=== PATIENT | male | born 1950 | race Caucasian/White ===

== ENCOUNTER 2017-04-14 11:34 | Inpatient (IN) | payer OTHER ==
[~2017-04-14] VITALS: Ht 190.5 cm; Wt 104.3 kg
[2017-04-14 14:11] LABS: BASOPHIL % 0.7 % (0-2); PLATELET COUNT 143 x10^3mcL (130-400)
[2017-04-14 14:13] LABS: RED CELL DISTRIBUTION WIDTH 16.6 % (11.5-14.5)
[2017-04-14 14:22] LABS: CALCIUM 8.6 mg/dL (8.5-10.1); CARBON DIOXIDE 30.6 mmol/L (21-32); CHLORIDE SERUM 98 mmol/L (98-107); CREATININE SERUM 0.6 mg/dL (0.7-1.3); GFR1 > 60 mL/min; GLUCOSE SERUM 101 mg/dL (74-106); POTASSIUM SERUM 3.5 mmol/L (3.5-5.1); SODIUM SERUM 134 mmol/L (136-145)
[2017-04-14 14:27] LABS: ALKALINE PHOSPHATASE 74 U/L (46-116); ALT/SGPT 43 U/L (16-63); AST/SGOT 29 U/L (15-37); BILIRUBIN TOTAL 1.6 mg/dL (0.20-1.00)
[2017-04-14 14:28] LABS: ALBUMIN 2.5 g/dL (3.4-5.0); TOTAL PROTEIN, SERUM 6.1 g/dL (6.4-8.2)
[2017-04-14 16:06] LABS: UA SPECIFIC GRAVITY <=1.005 (1.005-1.035); microscopic required? YES; urine erythrocyte 1+ (NEGATIVE)
[2017-04-14 16:31] VITALS: BP 140/70
[2017-04-14 16:32] LABS: AMPHETAMINE QUAL UR POSITIVE (NEG <=1000)
[2017-04-14 16:52] LABS: T3 TOTAL 0.93 ng/mL
[2017-04-14 17:04] LABS: MAGNESIUM 1.6 mg/dL (1.8-2.4); PHOSPHOROUS 2.7 mg/dL (2.5-4.9)
[2017-04-14 17:07] LABS: CHOLESTEROL/HDL RATIO 1.8
[2017-04-14 17:14] LABS: FREE T4 1.56 ng/dL (0.76-1.46); FREE THYROXINE INDEX 4.1 ug/dL (1.4-4.5); T4(THYROXINE) 10.6 ug/dL (4.7-13.3)
[2017-04-14 18:08] VITALS: BP 127/75
[2017-04-14 21:45] VITALS: BP 134/75
[2017-04-15 06:19] VITALS: BP 127/72
[2017-04-15 06:21] VITALS: BP 127/72
[2017-04-15 07:07] LABS: CALCIUM 8.1 mg/dL (8.5-10.1); CARBON DIOXIDE 29.2 mmol/L (21-32); CHLORIDE SERUM 101 mmol/L (98-107); CREATININE SERUM 0.5 mg/dL (0.7-1.3); GFR1 > 60 mL/min; GLUCOSE SERUM 83 mg/dL (74-106); POTASSIUM SERUM 3.5 mmol/L (3.5-5.1); SODIUM SERUM 136 mmol/L (136-145)
[2017-04-15 07:19] LABS: BASOPHIL % 0 % (0-2); PLATELET COUNT 99 x10^3mcL (130-400); RED CELL DISTRIBUTION WIDTH 16.3 % (11.5-14.5)
[2017-04-15 09:41] VITALS: BP 137/72
[2017-04-15 13:30] VITALS: BP 136/75
[2017-04-15 17:02] VITALS: BP 119/69
[2017-04-15 22:24] VITALS: BP 145/78
[2017-04-16 05:41] VITALS: BP 161/78
[2017-04-16 06:20] LABS: BASOPHIL % 0.4 % (0-2)
[2017-04-16 06:32] LABS: PLATELET COUNT 85 x10^3mcL (130-400); RED CELL DISTRIBUTION WIDTH 16.5 % (11.5-14.5)
[2017-04-16 06:45] LABS: CARBON DIOXIDE 28.2 mmol/L (21-32); CHLORIDE SERUM 105 mmol/L (98-107); CREATININE SERUM 0.4 mg/dL (0.7-1.3); GFR1 > 60 mL/min; GLUCOSE SERUM 91 mg/dL (74-106); MAGNESIUM 1.8 mg/dL (1.8-2.4); PHOSPHOROUS 2.9 mg/dL (2.5-4.9); POTASSIUM SERUM 3.4 mmol/L (3.5-5.1); SODIUM SERUM 138 mmol/L (136-145)
[2017-04-16 09:11] VITALS: BP 146/83
[2017-04-16 13:36] VITALS: BP 140/75
[2017-04-16 17:07] VITALS: BP 140/70
[2017-04-16 21:42] VITALS: BP 141/73
[2017-04-17 04:06] VITALS: BP 158/81
[2017-04-17 08:14] LABS: BASOPHIL % 0.4 % (0-2)
[2017-04-17 08:19] LABS: PLATELET COUNT 97 x10^3mcL (130-400); RED CELL DISTRIBUTION WIDTH 16.8 % (11.5-14.5)
[2017-04-17 08:26] LABS: CARBON DIOXIDE 29.6 mmol/L (21-32); CHLORIDE SERUM 104 mmol/L (98-107); CREATININE SERUM 0.5 mg/dL (0.7-1.3); GFR1 > 60 mL/min; GLUCOSE SERUM 100 mg/dL (74-106); POTASSIUM SERUM 3.8 mmol/L (3.5-5.1); SODIUM SERUM 137 mmol/L (136-145)
[2017-04-17 10:01] VITALS: BP 138/74
[2017-04-17 11:56] VITALS: BP 166/101
[2017-04-17 14:10] VITALS: BP 137/76
[2017-04-17 18:04] VITALS: BP 150/79
[2017-04-17 21:15] VITALS: BP 153/84
[2017-04-18 05:06] VITALS: BP 172/82
[2017-04-18 08:56] LABS: BASOPHIL % 0.6 % (0-2)
[2017-04-18 09:05] LABS: CALCIUM 8.2 mg/dL (8.5-10.1); CARBON DIOXIDE 28.3 mmol/L (21-32); CHLORIDE SERUM 99 mmol/L (98-107); CREATININE SERUM 0.5 mg/dL (0.7-1.3); GFR1 > 60 mL/min; GLUCOSE SERUM 79 mg/dL (74-106); MAGNESIUM 1.6 mg/dL (1.8-2.4); PHOSPHOROUS 2.7 mg/dL (2.5-4.9); POTASSIUM SERUM 3.6 mmol/L (3.5-5.1); SODIUM SERUM 131 mmol/L (136-145)
[2017-04-18 09:16] LABS: PLATELET COUNT 125 x10^3mcL (130-400); RED CELL DISTRIBUTION WIDTH 16.6 % (11.5-14.5)
[2017-04-18 10:30] VITALS: BP 156/85
[2017-04-18 14:52] VITALS: BP 142/77
[2017-04-18 17:15] VITALS: BP 134/67
[2017-04-18 21:42] VITALS: BP 153/78
[2017-04-19 06:57] VITALS: BP 134/74
[2017-04-19 08:34] LABS: BASOPHIL % 0.3 % (0-2)
[2017-04-19 08:37] LABS: PLATELET COUNT 129 x10^3mcL (130-400); RED CELL DISTRIBUTION WIDTH 16.4 % (11.5-14.5)
[2017-04-19 08:53] LABS: CALCIUM 8.1 mg/dL (8.5-10.1); CARBON DIOXIDE 29.5 mmol/L (21-32); CHLORIDE SERUM 100 mmol/L (98-107); CREATININE SERUM 0.4 mg/dL (0.7-1.3); GFR1 > 60 mL/min; GLUCOSE SERUM 82 mg/dL (74-106); PHOSPHOROUS 3.3 mg/dL (2.5-4.9); SODIUM SERUM 133 mmol/L (136-145)
[2017-04-19 10:01] VITALS: BP 167/76
[2017-04-19 14:37] VITALS: BP 110/71
[2017-04-19 18:10] VITALS: BP 128/66
[2017-04-19 20:55] VITALS: BP 116/59
[2017-04-19 21:55] VITALS: BP 123/58
[2017-04-20 04:45] VITALS: BP 116/59
[2017-04-20 05:18] VITALS: BP 139/77
[2017-04-20 06:31] LABS: BASOPHIL % 0.2 % (0-2); CALCIUM 8.3 mg/dL (8.5-10.1); CARBON DIOXIDE 31.1 mmol/L (21-32); CHLORIDE SERUM 99 mmol/L (98-107); CREATININE SERUM 0.6 mg/dL (0.7-1.3); GFR1 > 60 mL/min; GLUCOSE SERUM 100 mg/dL (74-106); MAGNESIUM 1.8 mg/dL (1.8-2.4); PHOSPHOROUS 3.2 mg/dL (2.5-4.9); PLATELET COUNT 171 x10^3mcL (130-400); POTASSIUM SERUM 4.1 mmol/L (3.5-5.1); SODIUM SERUM 135 mmol/L (136-145)
[2017-04-20 06:48] LABS: RED CELL DISTRIBUTION WIDTH 16.6 % (11.5-14.5)
[2017-04-20 09:20] VITALS: BP 132/68
[2017-04-20] MEDS ORDERED: CEFEPIME1 G1 IV (16:56)
[2017-04-20 16:57] VITALS: BP 132/68
[2017-04-20] MEDS ORDERED: ZES20 PO (17:14)
[2017-04-20] MEDS ORDERED: ELA25 PO (17:14)
[2017-04-20] MEDS ORDERED: ECO81 PO (17:14)
[2017-04-20] MEDS ORDERED: LIPI20 PO (17:14)
[2017-04-20] MEDS ORDERED: WELSR PO (17:14)
[2017-04-20 18:05] VITALS: BP 120/62
[2017-04-20 21:28] VITALS: BP 113/54
== END 2017-04-20 21:40 | DRG 140 ==
LOC: ED 11:34 → DU 15:43 → MU 04-20 06:39
PROVIDERS: Emergency Medicine; Family Medicine Sports Medicine; ADMIT Family Medicine
DX: J44.1 Chronic obstructive pulmonary disease with (acute) exacerbation (principal); J96.21 Acute and chronic respiratory failure with hypoxia; E43 Unspecified severe protein-calorie malnutrition; I10 Essential (primary) hypertension; E11.65 Type 2 diabetes mellitus with hyperglycemia; D64.9 Anemia, unspecified; G89.29 Other chronic pain; M54.9 Dorsalgia, unspecified; F15.10 Other stimulant abuse, uncomplicated; R78.81 Bacteremia; E87.1 Hypo-osmolality and hyponatremia; E87.6 Hypokalemia; R31.9 Hematuria, unspecified; F31.4 Bipolar disorder, current episode depressed, severe, without psychotic features; I07.1 Rheumatic tricuspid insufficiency; I37.1 Nonrheumatic pulmonary valve insufficiency; Z59.0 Homelessness; Z87.828 Personal history of other (healed) physical injury and trauma; Z87.891 Personal history of nicotine dependence
CPT/HCPCS: 83880; 84439; 92610-GN; 97110-GP; 97116-GP; 97530-GP; J0692; J1885; J1956; J2060; J2270; J3475; J3490; J7030; J7613; J7620; J7644; Q0092